=== PATIENT | female | born 1955 | race Two or more races ===

== ENCOUNTER 2025-08-20 05:48 | Observation (INO) | payer OTHER, MEDICAID, SELFPAY ==
[2025-08-20] VITALS (29 sets, daily range): BP systolic 122–169; BP diastolic 62–128; PULSE 63–168; RESP 15–24; TEMP 36.1–37.3; O2SAT 95–99; BMI 34.3
--- NOTE | 2025-08-20 05:52 | EKG_ITS ---
[facility], [place] Test Date: 2025-08-20 Pat Name: VIRGINIA SMITH Department: Room: - Gender: Female [employer]: : 1955 Requested By: Tarik Mc Order Number: [id number] Reading MD: Tarik Mc Measurements Intervals [place] Rate: 144 P: [place]: QRS: -5 QRSD: 86 T: 29 QT: 265 QTc: 410 Interpretive Statements ATRIAL FIBRILLATION WITH RAPID VENTRICULAR RESPONSE MODERATE ST DEPRESSION [0.05+ mV ST DEPRESSION] Compared to ECG 07/24/2024 12:46:15 ST (T wave) deviation now present Sinus rhythm no longer present /store/S0/[id number].pdf
--- NOTE | 2025-08-20 05:56 | XR_ITS ---
EXAMINATION: AP chest single view TECHNIQUE: AP portable upright chest single view Date and time: August 20, 2025, 0607 hours, comparison July 24, 2024 INDICATIONS: Chest pain today FINDINGS: Minor prominence left ventricle Moderate vascular congestion. Suspicious for mild edema at the lung bases No lobar pneumonia. Prominent osteopenia IMPRESSION: Suspicious for early heart failure
--- NOTE | 2025-08-20 05:56 | EKG_ITS ---
[facility] Test Date: 2025-08-20 Pat Name: VIRGINIA SMITH Department: Room: - Gender: Female [place]: : 1955 Requested By: Tarik Mc Order Number: [id number] Reading MD: Tarik Mc Measurements Intervals [place] Rate: 117 P: [place]: QRS: 11 QRSD: 102 T: 22 QT: 302 QTc: 422 Interpretive Statements ATRIAL FIBRILLATION WITH RAPID VENTRICULAR RESPONSE ABNORMAL RHYTHM ECG Compared to ECG 08/20/2025 05:54:40 ST (T wave) deviation no longer present /store/S0/[id number].pdf
[2025-08-20] MEDS: DILTIAZEM INJ 5 MG/ML VIAL 5 ML 10 MG IV ×2 (06:11→07:57)
--- NOTE | 2025-08-20 06:24 | PD.EDARRY ---
ED Arrhythmia Palp. RME/HPI General Chief Complaint: Anxiety Stated Complaint: ANXIETY Time Seen by Provider: 08/20/25 05:55 Source: patient and EMS Arrival date/time: 08/20/25 05:48 Mode of arrival: ambulatory Limitations: no limitations RME / HPI RME / HPI narrative: 70 year old female with history of hypertension, ESRD on HD T//Tue presents to the ED BIBA from the dialysis center for evaluation of elevated heart rate prior to receiving dialysis treatment today. Per medics, staff at the dialysis center reported a HR in the 160s. Medics state they administered 6mg of Adenosine with no change, followed by 12mg and an additional 12mg of Adenosine with no change. On arrival to ED HR in the 150s. No other associated symptoms reported. Healthcare Administrative Assistant: Dr. Jimmy STROUD complaint: irregular heart beat Onset (ago): unknown Duration: constant Context: occurred during rest Associated symptoms: denies other symptoms Related Data Home Medications ?Medication ?Instructions ?Recorded ?Confirmed nifedipine 30 mg tablet,extended 30 mg PO BID #0 tabs 08/17/17 08/06/23 release 24 hr (Procardia XL) hydralazine 25 mg tablet 50 mg PO TID 04/24/23 08/06/23 metoprolol tartrate 25 mg tablet 10 mg PO BID 04/24/23 08/06/23 losartan 100 mg tablet 100 mg PO QDAY 08/06/23 08/11/23 tramadol 50 mg tablet 50 mg PO Q8H PRN Pain 08/06/23 08/11/23 metoprolol tartrate 100 mg tablet 100 mg PO BID 08/11/23 08/11/23 nifedipine 30 mg tablet,extended 30 mg PO QDAY 08/11/23 08/11/23 release ondansetron 4 mg disintegrating 4 mg PO Q8H 08/11/23 08/11/23 tablet vitamin B complex-vitamin C-folic 1 tab PO QDAY 08/11/23 08/11/23 acid 0.8 mg tablet (Ingrid-Laron) Previous Rx's ?Medication ?Instructions ?Recorded amoxicillin 500 mg capsule 500 mg PO BID #10 caps 08/08/23 clonidine HCl 0.3 mg tablet 0.3 mg PO TID #90 tabs 08/08/23 Allergies Allergy/AdvReac Type Severity Reaction Status Date / Time No Known Allergies Allergy Verified 08/20/25 06:12 Review of Systems Review of Systems Systems Reviewed: All systems reviewed, normal except as documented Respiratory Respiratory: Reports system reviewed and no additional complaints, except as documented Gastrointestinal Gastrointestinal: Reports system reviewed and no additional complaints, except as documented Genitourinary Genitourinary: Reports system reviewed and no additional complaints, except as documented Musculoskeletal Musculoskeletal: Reports system reviewed and no additional complaints, except as documented Neurologic Neurologic: Reports system reviewed and no additional complaints, except as documented Psychiatric Psychiatric: Reports system reviewed and no additional complaints, except as documented Endocrine Endocrine: Reports system reviewed and no additional complaints, except as documented Past Medical History Past Medical History CARDIAC: Positive Cardiac Disorders and Hypertension GENITOURINARY: Positive Dialysis REPRODUCTIVE: Positive Previous Pregnancies ENDOCRINE: Positive Endocrine Disorders OTHER HISTORY: Positive Hospitalization Surgical History SURGICAL: Positive Endocrine Surgery Social History SMOKING STATUS: Never smoker SUBSTANCE USE: does not use 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 Exam General Limitations: Present no limitations General appearance: Present alert and in no apparent distress Head Head exam: Present atraumatic Eye Eye exam: Present normal appearance, PERRL and EOMI ENT ENT exam: Present normal exam, normal oropharynx and mucous membranes moist Neck Neck exam: Present normal inspection, full ROM and trachea midline Chest Chest inspection: Present normal inspection and symmetric chest wall rise Respiratory Respiratory exam: Present normal lung sounds bilaterally Cardiovascular Cardiovascular exam: Present tachycardia and irregular rhythm Abdominal Exam Abdominal exam: Present soft and normal bowel sounds Extremities Exam Extremities exam: Present normal inspection and full ROM Back Exam Back exam: Present normal inspection and full ROM Neurological Exam Neurological exam: Present alert, oriented X3 and CN II-XII intact Psychiatric Psychiatric exam: Present normal affect and normal mood Skin Skin exam: Present warm, dry, intact and normal color Course Quality Measures none Orders Category Date Time Status EKG (ED ONLY) *Do not use* NOW Care 08/20/25 05:52 Completed EKG (ED ONLY) *Do not use* NOW Care 08/20/25 05:56 Completed EKG (ED Only) Stat Exams 08/20/25 05:52 Draft EKG (ED Only) Stat Exams 08/20/25 05:56 Ordered XR chest 1V portable Stat Exams 08/20/25 05:56 Taken B-Type Natriuretic Peptide Stat Lab 08/20/25 05:56 Ordered CBC Stat Lab 08/20/25 05:56 Ordered Comprehensive Metabolic Panel Stat Lab 08/20/25 05:56 Ordered Drug Screen,Urine Stat Lab 08/20/25 05:56 Ordered LDH (Lactate Dehydrogenase) Stat Lab 08/20/25 05:56 Ordered Magnesium Stat Lab 08/20/25 05:56 Ordered Partial Thromboplastin Time Stat Lab 08/20/25 05:56 Ordered Prothrombin Time with INR Stat Lab 08/20/25 05:56 Ordered Troponin I Stat Lab 08/20/25 05:56 Ordered Urinalysis, C/S if Indicated Stat Lab 08/20/25 05:56 Ordered Diltiazem Inj [Cardizem Inj] Med 08/20/25 05:57 Discontinued 10 mg IV X1 ONE Vital Signs Vital signs: Vital Signs Temperature 99.1 F 08/20/25 05:54 Pulse Rate 150 H 08/20/25 05:54 Respiratory Rate 18 08/20/25 05:54 Blood Pressure 162/128 H 08/20/25 05:54 Pulse Oximetry (%) 97 08/20/25 05:54 Oxygen Delivery Method Room Air 08/20/25 05:54 Arrhythmia/Palpitations MDM Narrative MDM Narrative:: Patient placed immediately to room placed on consulting psychiatrist. 0644a: EKG noted to be atrial fibrillation. Patient without chest pain, shortness of breath. 1000a: I spoke with nephrology Dr. Marquez, states she will get the patient dialyzed and advised admission. 1005a: I spoke with hospitalist team C for admission. Patient data External records reviewed:: [facility] previous records (Patient on hemodialysis) Clinical information provided by:: patient and family Social determinants that could affect healthcare access:: none Patient has the following chronic illnesses:: Hypertension, hemodialysis, end-stage renal disease How is presenting disease/condition affected by chronic disease/condition?: exacerbated by Evaluation data The following diagnostics were reviewed and interpreted by me:: lab results, radiology exam(s) and EKG tracing(s) (EKG #1 @ 05:54 AM atrial fibrillation with RVR, rate 144, no STEMI. EKG #2 @ 10:12 AM atrial fibrillation with RVR, rate 117, no STEMI. ) Lab and/or radiology exams considered but not ordered:: None Interpretation Summary: Ordering Physician: Tarik Lynn DO Date of Service: 08/20/25 Procedure(s): XR chest 1V portable Accession Number(s): [id number] cc: Luis Adrian; Tarik Lynn DO; Matthias Cabrera MD~ EXAMINATION: AP chest single view TECHNIQUE: AP portable upright chest single view Date and time: August 20, 2025, 0607 hours, comparison July 24, 2024 INDICATIONS: Chest pain today FINDINGS: Minor prominence left ventricle Moderate vascular congestion. Suspicious for mild edema at the lung bases No lobar pneumonia. Prominent osteopenia IMPRESSION: Suspicious for early heart failure Dictated By: Matthias Cabrera MD Signed By: <Electronically signed by Matthias Cabrera MD in OV> 08/20/25 0738 Medications / Prescriptions Medications or Prescriptions considered but not ordered:: None Medication administrations:: Medication Administration History Discontinued Medications Diltiazem HCl (Diltiazem Inj 5 Mg/Ml Vial 5 Ml) 10 mg IV X1 ONE Stop: 08/20/25 05:58 Last Admin: 08/20/25 06:11 Dose: 10 mg Documented By: AC Consultations Consultation(s) initiated? (list below): Yes Consultation #1 (Physician, Specialty, Details): See mdm Diagnosis Most likely diagnosis given after review of the tests above:: New onset atrial fibrillation Admission Indicated Admission indicated?: indicated Admission Request Was there a request for admission?: Yes Admission Attestation Admission request attestation: Discussed case with [] from Hospitalist service regarding admission. Discussed patients ED course, exam findings, labs, and radiology results. The Hospitalist [agrees,declines] to accept the patient for admission. Disposition Plan Disposition Plan: Admit Discharge Plan Plan Patient Disposition: Admit Acute Care w/in Hospital Problem List Clinical Impression: Atrial fibrillation, new onset
[2025-08-20 06:32] LABS: Basophils # (Auto) 0.0 Thou/mm3 (0.0-0.2); Basophils % (Auto) 1 % (0-2.5); Eosinophils # (Auto) 0.4 Thou/mm3 (0.0-0.5); Eosinophils % (Auto) 4 % (0-10); Hematocrit 41.1 % (36.0-46.0); Hemoglobin 13.9 g/dL (12.0-16.0); Immature Granulocytes Auto 0.03 Thou/mm3 (0.00-0.00); Lymphocytes # (Auto) 2.5 Thou/mm3 (1.0-4.8); Lymphocytes % (Auto) 30 % (10-50); Mean Corpuscular HGB Conc 33.8 g/dl (31.0-37.0); Mean Corpuscular Hemoglobin 34.9 pg (25.0-35.0); Mean Corpuscular Volume 103 fL (80-100); Monocytes # (Auto) 0.8 Thou/mm3 (0.0-0.8); Monocytes % (Auto) 9 % (0-12); Neutrophils # (Auto) 4.8 Thou/mm3 (1.8-7.7); Neutrophils % (Auto) 56 % (37-80); Nucleated Red Blood Cell # 0.00 Thou/mm3 (0.00-0.00); Nucleated Red Blood Cell % 0 /100 WBC (0); Platelet Count 146 Thou/mm3 (140-440); RDW Standard Deviation 50.3 fL (36.4-46.3); Red Blood Count 3.98 Miln/mm3 (4.00-5.20); White Blood Count 8.6 Thou/mm3 (3.6-11.0)
[2025-08-20 06:51] LABS: INR 1.0 (0.9-1.3); Partial Thromboplastin Time 24.8 Seconds (22.0-36.0); Prothrombin Time 10.3 Seconds (9.0-12.2)
[2025-08-20 07:05] LABS: B-Type Natriuretic Peptide 744 pg/mL (0-100)
[2025-08-20 07:07] LABS: Alanine Aminotransferase 29 U/L (10-49); Albumin, Serum 4.4 gm/dL (3.4-4.8); Albumin/Globulin Ratio 1.7 (1.2-2.2); Alkaline Phosphatase 129 U/L (46-116); Anion Gap 19 (7-16); Aspartate Amino Transferase 29 U/L (0-34); BUN/Creatinine Ratio 4 Ratio (12-20); Bilirubin,Total 0.4 mg/dL (0.3-1.2); Blood Urea Nitrogen 49 mg/dL (9-23); Calcium 9.4 mg/dL (8.3-10.6); Calcium (Corrected) 9.4 mg/dL (8.5-10.1); Carbon Dioxide 17.7 mMol/L (20.0-31.0); Chloride 103 mMol/L (98-107); Creatinine (Component) 11.0 mg/dL (0.6-1.3); Estimated Creatinine Clearance 4.5 mL/min (>60); Globulin 2.6 gm/dL (2.3-3.5); Glucose 109 mg/dL (74-106); Magnesium 2.4 mg/dL (1.6-2.6); Osmolality,Calculated 293 (275-295); Potassium 4.5 mMol/L (3.4-5.1); Sodium 140 mMol/L (136-145); Total Protein 7.0 gm/dL (5.7-8.2); Troponin I < 0.020 ng/mL (0.0-0.045); eGFR 3 See Note
[2025-08-20 07:18] LABS: LDH (Lactate Dehydrogenase) 219 U/L (120-246)
--- NOTE | 2025-08-20 11:10 | PD.RESHP ---
Documentation for date of: 08/20/25 [facility] History of Present Illness Chief complaint: palpitations History of present illness: 70-year-old female with past medical history ESRD, hypertension, and hyperlipidemia was admitted to the hospital on 08/20/2025 after she came to the ED with chief complaints of palpitations and shortness of breath while getting hemodialysis today. Patient stated that she was getting ready to get her hemodialysis today when they told her that her heart rate was too fast and did not do hemodialysis and was sent to the ED. She mentioned that she had never felt any palpitations or this type of shortness of breath before, but that today she felt that around 4 AM before dialysis. Otherwise she denied having any chest pain, nausea, vomiting, or numbness in her left arm or face. She mentions that she does not have any cardiac history. Otherwise no other complaints at this time. ED course: Initially came in tachycardic and hypertensive. Initial chest x-ray showed suspicion for early heart failure and initial EKG showed A-fib with RVR and a rate of 144. Initial labs were fairly unremarkable other than CMP showing elevated creatinine and elevated BNP. Got 2 doses of 10 mg diltiazem IV with minimal improvement in patient's heart rate. 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 Anicteric, vision grossly intact. Ears: No ear pain, no ear discharge, Hearing grossly intact. Nose: No nasal discharge. Mouth/Throat: Moist mucous membranes, no redness, no lesions. Neck: Neck supple, non-tender, no cervical lymphadenopathy. Lungs: Clear NINO to auscultation and percussion, No accessory muscle use. Cardio: Normal S1/S2, irregular rhythm, no murmurs, no JVD or carotid bruits. Abdomen: Soft, non-tender, no palpable masses, peristalsis present, no guarding or rebound. Extremities: Symmetrical, no significant deformities, no peripheral edema , non-tender, peripheral pulses presents. Skin: No rashes, no lesions, warm to touch. L arm fistula Neuro: No focal neurological deficits. motor and sensory intact Psych: Cooperative, appropriate mood and effect. Results: Labs 08/20/25 06:22 08/20/25 13:27 Labs: Short CBC 08/20/25 Range/Units 06:22 WBC 8.6 (3.6-11.0) Thou/mm3 Hgb 13.9 (12.0-16.0) g/dL Hct 41.1 (36.0-46.0) % Plt Count 146 (140-440) Thou/mm3 BMP 08/20/25 06:22 Sodium 140 Potassium 4.5 Chloride 103 Carbon Dioxide 17.7 L BUN 49 H Creatinine 11.0 H* Glucose 109 H Calcium 9.4 Cardiac Enzymes 08/20/25 Range/Units 06:22 Troponin I < 0.020 (0.0-0.045) ng/mL Liver Function 08/20/25 Range/Units 06:22 Total Bilirubin 0.4 (0.3-1.2) mg/dL AST 29 (0-34) U/L ALT 29 (10-49) U/L Alkaline Phosphatase 129 H (46-116) U/L Albumin 4.4 (3.4-4.8) gm/dL Quality Measures Quality Measures VTE prophylaxis Advance care planning discussed with:: patient Medications Home Medications and Allergies Home Medications ?Medication ?Instructions ?Recorded ?Confirmed ?Type nifedipine 30 mg tablet,extended 30 mg PO BID #0 tabs 08/17/17 08/06/23 History release 24 hr (Procardia XL) hydralazine 25 mg tablet 50 mg PO TID 04/24/23 08/06/23 History metoprolol tartrate 25 mg tablet 10 mg PO BID 04/24/23 08/06/23 History losartan 100 mg tablet 100 mg PO QDAY 08/06/23 08/11/23 History tramadol 50 mg tablet 50 mg PO Q8H PRN Pain 08/06/23 08/11/23 History metoprolol tartrate 100 mg tablet 100 mg PO BID 08/11/23 08/11/23 History nifedipine 30 mg tablet,extended 30 mg PO QDAY 08/11/23 08/11/23 History release ondansetron 4 mg disintegrating 4 mg PO Q8H 08/11/23 08/11/23 History tablet vitamin B complex-vitamin C-folic 1 tab PO QDAY 08/11/23 08/11/23 History acid 0.8 mg tablet (Ingrid-Laron) Allergies Allergy/AdvReac Type Severity Reaction Status Date / Time No Known Allergies Allergy Verified 08/20/25 06:12 Visit Medications Acetaminophen (Acetaminophen 325 Mg Tablet) 650 mg PO Q6H PRN PRN Reason: Fever >100.4 Stop: 09/19/25 11:01 Hydrocodone Bitart/Acetaminophen (Hydrocodone/Apap 5/325 Tablet) 1 tab PO Q4HR PRN PRN Reason: PAIN SCALE 4-6 (Moderate Stop: 08/25/25 11:01 Metoprolol Succinate (Metoprolol Succinate Xl 25 Mg Tabcr) 50 mg PO QDAY [facility] Stop: 09/19/25 11:14 Ondansetron HCl (Ondansetron Inj 2 Mg/Ml Inj 2 Ml) 4 mg IVP Q6H PRN; Protocol PRN Reason: NAUSEA OR VOMITING Stop: 09/19/25 11:01 Pantoprazole Sodium (Pantoprazole 40 Mg Tablet) 40 mg PO QDAY [facility] Stop: 09/19/25 11:14 Discontinued Medications Diltiazem HCl (Diltiazem Inj 5 Mg/Ml Vial 5 Ml) 10 mg IV X1 ONE Stop: 08/20/25 05:58 Last Admin: 08/20/25 06:11 Dose: 10 mg Diltiazem HCl (Diltiazem Inj 5 Mg/Ml Vial 5 Ml) 5 mg IV X1 ONE Stop: 08/20/25 06:52 Diltiazem HCl (Diltiazem Inj 5 Mg/Ml Vial 5 Ml) 10 mg IV X1 ONE Stop: 08/20/25 06:53 Last Admin: 08/20/25 07:57 Dose: 10 mg Assessment & Plan Plan 70-year-old female with past medical history ESRD, hypertension, and hyperlipidemia was admitted to the hospital on 08/20/2025 for A-fib with RVR. #A-fib with RVR Patient came in initially with low heart rate in the 150s and EKG initially showed A-fib RVR with a heart rate of 144. Got diltiazem 10 mg IV x 2 with minimal improvement [id number] score of 3 points indicating 4.6% risk of stroke Has-bled score of 2 points indicating moderate risk of bleeding. BNP elevated Plan: Start metoprolol succinate XL 50 mg daily Heparin drip for anticoagulation and will transition to Eliquis in the next 24 to 48 hours if no bleeding. Echo ordered keep potassium magnesium above 4 and 2 respectively. TSH, lipid panel, and A1c for cardiac risk stratification Cardiology consulted, appreciate commendations #ESRD Patient has hemodialysis scheduled for today, but did not get it today Patient's creatinine was 9.1 with BUN of 52 today Plan: Continue with hemodialysis as scheduled Avoid nephrotoxic agents Renally dose medication Nephrology consulted appreciate commendations # Essential hypertension Resume home antihypertensive treatment once reconciled. Monitor BP Disposition: Patient admitted to telemetry for A-fib with RVR. Diet: cardiac and renal GI prophylaxis: protonix DVT prophylaxis: heparin drip Code: Full Case disclosed with Attending Dr. Joey Hall PGY2 Disclaimer: Even though this this note was dictated by speech recognition and even though it was carefully revised there may still be minor errors in facility examiner due to voice recognition software. Attending Provider Attestation/Addendum I reviewed labs, imaging, EKG, home medications and prior available records. Face to face evaluation was performed by me. I have personally examined the patient and discussed assessment and plan with the IM team. I reviewed the resident note and agree with the plan with exceptions as below. ESRD on hemodialysis Atrial fibrillation with RVR, new onset Essential hypertension Gave IV diltiazem Started oral metoprolol Started heparin drip Ordered echocardiogram Consulted cardiology Consulted nephrology for hemodialysis Resume home antihypertensive treatment once reconciled. Monitor BP
--- NOTE | 2025-08-20 11:32 | ECHO_ITS ---
Transthoracic Echo Report Ht (in): 60 Wt (lb): 176 Exam Location: [facility] Status: Inpatient Director Of Sustainability Programs: Rocio Chavez Indications: Procedure Performed: BP: 162 / 98 HR: 76 MEASUREMENTS (Male / Female) Normal Values 2D ECHO LV Diastolic Diameter PLAX 4.3 cm 4.2 - 5.9 / 3.9 - 5.3 cm LV Systolic Diameter PLAX 2.8 cm IVS Diastolic Thickness 1.1 cm 0.6 - 1.0 / 0.6 - 0.9 cm LVPW Diastolic Thickness 1.2 cm 0.6 - 1.0 / 0.6 - 0.9 cm LV Relative Wall Thickness 0.5 LVOT Diameter 1.9 cm LA Volume Index 41.5 cm?/m? 16 - 28 cm?/m? Ascending Aorta Diameter 2.6 cm M-MODE AV Cusp Separation MM 1.1 cm DOPPLER AV Peak Velocity 137.0 cm/s AV Peak Gradient 7.5 mmHg AV Mean Gradient 4.0 mmHg AV Velocity Time Integral 33.3 cm LVOT Peak Velocity 102.0 cm/s LVOT Peak Gradient 4.2 mmHg LVOT Velocity Time Integral 24.2 cm LVOT Cardiac Index 2779.2 cm?/min?m? AV Area Cont Eq vti 2.1 cm? AV Area Cont Eq pk 2.1 cm? MV Area PHT 4.2 cm? Mitral E Point Velocity 59.7 cm/s Mitral A Point Velocity 79.1 cm/s Mitral E to A Ratio 0.8 LV E' Lateral Velocity 10.3 cm/s Mitral E to LV E' Lateral Ratio 5.8 LV E' Septal Velocity 5.7 cm/s Mitral E to LV E' Septal Ratio 10.5 TR Peak Velocity 237.0 cm/s TR Peak Gradient 22.5 mmHg PV Peak Velocity 102.0 cm/s PV Peak Gradient 4.2 mmHg FINDINGS Left Ventricle Normal left ventricular size, wall thickness, systolic function with no obvious regional wall motion abnormalities. There is grade I diastolic dysfunction of the left ventricle (impaired relaxation pattern). . The ejection fraction is visually estimated at 60-65%. Right Ventricle The right ventricle is normal in size and systolic function. The estimated right ventricular systolic pressure, 34 mmHg with RAP 10. Mild HTN. Left Atrium The left atrial cavity size is severely increased. Right Atrium The right atrial cavity size is mildly increased. Atrial Septum The interatrial septum appears normal with no evidence of a shunt. Aorta The aorta is normal by two-dimensional, color flow and Doppler interrogation. Mitral Valve The mitral valve is normal by two-dimensional, color flow and Doppler interrogation. Mild mitral regurgitation. Aortic Valve The aortic valve is trileaflet and normal by two-dimensional, color flow and Doppler interrogation. There is no significant aortic valve regurgitation. Tricuspid Valve The tricuspid valve is normal by two-dimensional, color flow and Doppler interrogation. There is mild tricuspid valve regurgitation. Pulmonic Valve The pulmonic valve is not well visualized.mild pulmonic valve regurgitation. Vessels The pulmonary artery appears normal. The inferior vena cava pulmonary and hepatic veins appear normal. Pericardium The pericardium is normal by two-dimensional imaging. There is no significant pericardial effusion. CONCLUSIONS Indication: Afib w RVR, SOB Normal left ventricular size and function. Grade I diastolic dysfunction. Estimated EF 60-65%. Normal Right ventricular size and function. RVSP 34 mmHg with RAP 10. Mild HTN Moderately dilated LA and mild dilated RA Mild MR,TR,PI. No pericardial effusion. Compared to prior study of 08/08/23 Edwin Pacheco (Electronically Signed) Final Date: 21 August 2025 18:24
[2025-08-20] MEDS: PANTOPRAZOLE 40 MG TABLET PO (11:48)
[2025-08-20] MEDS: METOPROLOL SUCCINATE XL 25 MG TABCR 50 MG PO (11:48)
[2025-08-20 12:02] LABS: Partial Thromboplastin Time 25.9 Seconds (22.0-36.0)
--- NOTE | 2025-08-20 12:05 | PC.NURSE ---
Called and spoke with Dr Blas Solares to inform him that patient converted to sinus rhythm at 76bpm. Also informed Dr that dialysis is ready for patient and confirmed if he wanted heparin drip to be started at this time. Dr stated to start heparin at this time.
--- NOTE | 2025-08-20 12:11 | PD.RESCONSUL ---
HPI Data of Consult Requesting Physician: Bradley Cook MD Admitting Provider: Bradley Cook MD Attending Provider: Bradley Cook MD Primary Care Provider: Luis Adrian Consult Narrative History of present illness: Patient is a 70 year old female with PMH of end-stage renal disease on hemodialysis TTS followed by Dr. Finch since March 2023, essential hypertension (previously on multiple medications) was brought in for palpitations and shortness of breath upon arrival to the hemodialysis center. Did not start her session, has been adherent to her schedule, last session was on Tuesday. EKG that was done and was found to be in A-fib with RVR. Denies any prior episodes. BP 162/128, HR 150. Patient was afebrile, saturating well on room air. EKG showed A-fib with RVR, was given diltiazem x 2 followed by metoprolol XL 50 mg x 1. Upon exam, patient was back in sinus rhythm, heart rate 74. Cardiology consulted for afib with RVR. Past Medical History: as above Family History: No known history of cardiac disease, RI, or stroke. Surgical History: None Social History: Denies history of smoking, denies current alcohol use, denies recreational drug use Current Medications: reports she is not taking any but previously prescribed clonidine 0.3 mg 3 times daily, hydralazine 50 mg 3 times daily, losartan 100 mg daily, metoprolol tartrate 10 mg twice daily, nifedipine 30 mg daily Allergies: No known drug allergies cc:: cc: Bradley Cook MD Exam Vital Signs Temp Pulse Resp BP Pulse Ox O2 Del Method 98.6 F 122 H 16 162/98 H 98 Room Air 08/20/25 11:00 08/20/25 11:48 08/20/25 11:30 08/20/25 11:48 08/20/25 11:30 08/20/25 11:30 Narrative Exam Physical Exam General: Awake and in no acute distress. Conversational and non-toxic appearing. Pleasant [place]an-speaking elderly lady. HEENT: Normocephalic, atraumatic, mucous membranes moist. Heart: Regular rate and rhythm, normal S1 and S2, no murmurs appreciated. Lungs: Clear to auscultation with no wheezing or crackles. Abdomen: Soft, nondistended, nontender, positive bowel sounds. No guarding or rebound tenderness. Neurologic: Alert and oriented x3, no gross neurological deficit, and patient able to move all 4 extremities. Extremities: No edema. Skin: No rash or ecchymoses. Results Labs 08/21/25 05:01 08/21/25 05:01 Labs: Short CBC 08/20/25 Range/Units 06:22 WBC 8.6 (3.6-11.0) Thou/mm3 Hgb 13.9 (12.0-16.0) g/dL Hct 41.1 (36.0-46.0) % Plt Count 146 (140-440) Thou/mm3 BMP 08/20/25 06:22 Sodium 140 Potassium 4.5 Chloride 103 Carbon Dioxide 17.7 L BUN 49 H Creatinine 11.0 H* Glucose 109 H Calcium 9.4 Cardiac Enzymes 08/20/25 Range/Units 06:22 Troponin I < 0.020 (0.0-0.045) ng/mL Liver Function 08/20/25 Range/Units 06:22 Total Bilirubin 0.4 (0.3-1.2) mg/dL AST 29 (0-34) U/L ALT 29 (10-49) U/L Alkaline Phosphatase 129 H (46-116) U/L Albumin 4.4 (3.4-4.8) gm/dL Quality Measures Quality Measures VTE prophylaxis Advance care planning discussed with:: patient Medications Home Medications and Allergies Home Medications ?Medication ?Instructions ?Recorded ?Confirmed ?Type nifedipine 30 mg tablet,extended 30 mg PO BID #0 tabs 08/17/17 08/20/25 History release 24 hr (Procardia XL) hydralazine 25 mg tablet 50 mg PO TID 04/24/23 08/20/25 History metoprolol tartrate 25 mg tablet 10 mg PO BID 04/24/23 08/20/25 History losartan 100 mg tablet 100 mg PO QDAY 08/06/23 08/20/25 History metoprolol tartrate 100 mg tablet 100 mg PO BID 08/11/23 08/20/25 History nifedipine 30 mg tablet,extended 30 mg PO QDAY 08/11/23 08/20/25 History release Allergies Allergy/AdvReac Type Severity Reaction Status Date / Time No Known Allergies Allergy Verified 08/20/25 06:12 Visit Medications Acetaminophen (Acetaminophen 325 Mg Tablet) 650 mg PO Q6H PRN PRN Reason: Fever >100.4 Stop: 09/19/25 11:01 Hydrocodone Bitart/Acetaminophen (Hydrocodone/Apap 5/325 Tablet) 1 tab PO Q4HR PRN PRN Reason: PAIN SCALE 4-6 (Moderate Stop: 08/25/25 11:01 Heparin Sodium/Dextrose (Heparin In D5w Ivpb) 25,000 unit in 250 mls @ 9.58 mls/hr IV .Q24H ISIDORO; Protocol Stop: 09/03/25 11:59 Metoprolol Succinate (Metoprolol Succinate Xl 25 Mg Tabcr) 50 mg PO QDAY ISIDORO Stop: 09/19/25 11:14 Last Admin: 08/20/25 11:48 Dose: 50 mg Ondansetron HCl (Ondansetron Inj 2 Mg/Ml Inj 2 Ml) 4 mg IVP Q6H PRN; Protocol PRN Reason: NAUSEA OR VOMITING Stop: 09/19/25 11:01 Pantoprazole Sodium (Pantoprazole 40 Mg Tablet) 40 mg PO QDAY [facility] Stop: 09/19/25 11:14 Last Admin: 08/20/25 11:48 Dose: 40 mg Discontinued Medications Diltiazem HCl (Diltiazem Inj 5 Mg/Ml Vial 5 Ml) 10 mg IV X1 ONE Stop: 08/20/25 05:58 Last Admin: 08/20/25 06:11 Dose: 10 mg Diltiazem HCl (Diltiazem Inj 5 Mg/Ml Vial 5 Ml) 5 mg IV X1 ONE Stop: 08/20/25 06:52 Diltiazem HCl (Diltiazem Inj 5 Mg/Ml Vial 5 Ml) 10 mg IV X1 ONE Stop: 08/20/25 06:53 Last Admin: 08/20/25 07:57 Dose: 10 mg Heparin Sodium (Porcine) (Heparin Sod Inj 5000 Unit/Ml Vial) 4,800 unit 80 unit/kg (6400 unit) IV X1 ONE; Protocol Stop: 08/20/25 11:46 Assessment & Plan Plan Patient is a 70 year old female with PMH of end-stage renal disease on hemodialysis TTS followed by Dr. Finch since March 2023, essential hypertension (previously on multiple medications) was brought in for palpitations and shortness of breath. Admitted for A-fib with RVR. #New onset paroxysmal atrial fibrillation with RVR Presented with palpitations and shortness of breath, found to be in A-fib RVR on EKG. As per the patient she never had a history of A-fib. Reason for the RVR is mostly fluid overload as well as electrolyte abnormalities. No significant evidence of infection at the present point of time. Reviewed the previous EKG and previous was normal sinus rhythm. Patient did convert to normal sinus rhythm after the diltiazem x2 and metoprolol 50 x1, continues to stay normal sinus rhythm. Echocardiogram 10/2023 showed normal LV size and function with an EF of 60 to 65% with an estimated RVSP of 55 mmHg. Normal RV size and function. At least moderate pulmonary hypertension. Moderately dilated LA and severely dilated RA with mild to moderate MR as well as PI. Severe TR and IVC was dilated at that point of time. [id number] score is 4 Has bled score is 3. - Recommend to start metoprolol XL 50 mg once daily and continue to uptitrate it based on the blood pressure. - Recommend anticoagulation for the patient and can start with heparin drip for now until any further procedures are planned. Can transition to oral Eliquis 5 mg twice daily at the time of discharge or when no further procedures planned. - Keep potassium for greater than 4 and magnesium greater than 2.0 at all times. - Recommend to continue to treat the cause for the A-fib with RVR. - Continue telemetry. - Echocardiogram ordered to evaluate LV function RV function as well as diastolic function and to rule out any kind of pericardial effusion. Previous echo reviewed. - TSH, lipid panel, and A1c for cardiac risk stratification # History of diastolic congestive heart failure along with moderate to severe pulmonary hypertension. # Valvular heart disease with severe TR during last echocardiogram in 2022 along with mild to moderate MR as well as PI. # End-stage renal disease on hemodialysis TTSat Regarding her diastolic congestive heart failure, patient does have a history of end-stage renal disease on hemodialysis which may be major contributory factor. Patient does appear to be fluid overloaded with some electrolyte abnormalities as noted above which cause with RVR. Regarding her valvular heart disease last echo did show severe TR along with mild to moderate MR as well as PI. Patient is on dialysis and makes little urine. Follows Dr. Marquez as above. S/p inpatient dialysis 08/20. - Recommend to continue daily dialysis for now and have euvolemic status - Further management as per nephrology. - Will await for the repeat echocardiogram as noted above to evaluate for the CHF as well as the valvular heart disease #Hypertension Presented with BP of 162/128. Previously taking 5 different blood pressure medications however has not been taking them as of late because she was told that her blood pressure is fine. ?Monitor blood pressure -Restart home BP meds if blood pressure continues to be uncontrolled depending on HR, renal function, and echo results Thank you for your consultation, please do not hesitate to reach out if you have any question or concern Patient plan of care was discussed with the attending physician, Dr. Pacheco . Deborah Red, PGY-1 Attending Provider Attestation/Addendum I have personally seen and examined the patient separately on the above date of service and discussed the plan of care with the resident. I reviewed the resident Dr. Deborah Red consultation progress note and agree with the resident findings and plan in the note above and have also edited the documentation to reflect my findings and plan. Edwin Pacheco M.D. Interventional Cardiology
[2025-08-20] MEDS: HEPARIN SOD INJ 5000 UNIT/ML VIAL 4800 UNIT IV (12:13)
[2025-08-20] MEDS: Heparin/D5w 25K 250 ML Ivpb 25,000 UNIT/250 ML BAG 9.58 UNIT IV (12:16)
--- NOTE | 2025-08-20 12:17 | PC.NURSE ---
[employer] Operator Tara at bedside
[2025-08-20 14:17] LABS: Albumin, Serum 4.0 gm/dL (3.4-4.8); Anion Gap 17 (7-16); BUN/Creatinine Ratio 6 Ratio (12-20); Blood Urea Nitrogen 52 mg/dL (9-23); Calcium 9.0 mg/dL (8.3-10.6); Calcium (Corrected) 9.0 mg/dL (8.5-10.1); Carbon Dioxide 21.4 mMol/L (20.0-31.0); Chloride 102 mMol/L (98-107); Creatinine (Component) 9.1 mg/dL (0.6-1.3); Estimated Creatinine Clearance 5.5 mL/min (>60); Glucose 120 mg/dL (74-106); Osmolality,Calculated 294 (275-295); Phosphorous 2.8 mg/dL (2.4-5.1); Potassium 4.8 mMol/L (3.4-5.1); Sodium 140 mMol/L (136-145); eGFR 4 See Note
[2025-08-20 15:02] LABS: Hepatitis A Antibody IgM Non Reactive (Non React); Hepatitis B Core Antibody IgM Non Reactive (Non React); Hepatitis B Surface Ab NonReact(Not Immune) (Immune); Hepatitis B Surface Antigen Non Reactive (Non React); Hepatitis C Antibody Reactive (Non React)
[2025-08-20 17:42] LABS: Partial Thromboplastin Time 75.3 Seconds (22.0-36.0)
[2025-08-20] MEDS: NIFEdipine XL 30 MG TABCR PO (17:50)
[2025-08-20 19:34] LABS: Partial Thromboplastin Time 67.9 Seconds (22.0-36.0)
[2025-08-20] MEDS: ACETAMINOPHEN 325 MG TABLET 650 MG PO (19:57)
[2025-08-21] VITALS (25 sets, daily range): BP systolic 102–196; BP diastolic 56–93; PULSE 50–95; RESP 14–98; TEMP 35.9–36.8; O2SAT 95–98; BMI 33.1
[2025-08-21 02:18] LABS: Partial Thromboplastin Time 65.6 Seconds (22.0-36.0)
[2025-08-21 06:18] LABS: Basophils # (Auto) 0.1 Thou/mm3 (0.0-0.2); Basophils % (Auto) 1 % (0-2.5); Eosinophils # (Auto) 0.4 Thou/mm3 (0.0-0.5); Eosinophils % (Auto) 5 % (0-10); Hematocrit 43.2 % (36.0-46.0); Hemoglobin 14.9 g/dL (12.0-16.0); Immature Granulocytes Auto 0.07 Thou/mm3 (0.00-0.00); Lymphocytes # (Auto) 3.0 Thou/mm3 (1.0-4.8); Lymphocytes % (Auto) 33 % (10-50); Mean Corpuscular HGB Conc 34.5 g/dl (31.0-37.0); Mean Corpuscular Hemoglobin 35.5 pg (25.0-35.0); Mean Corpuscular Volume 103 fL (80-100); Monocytes # (Auto) 0.9 Thou/mm3 (0.0-0.8); Monocytes % (Auto) 10 % (0-12); Neutrophils # (Auto) 4.5 Thou/mm3 (1.8-7.7); Neutrophils % (Auto) 50 % (37-80); Nucleated Red Blood Cell # 0.00 Thou/mm3 (0.00-0.00); Nucleated Red Blood Cell % 0 /100 WBC (0); Platelet Count 170 Thou/mm3 (140-440); RDW Standard Deviation 50.9 fL (36.4-46.3); Red Blood Count 4.20 Miln/mm3 (4.00-5.20); White Blood Count 8.9 Thou/mm3 (3.6-11.0)
[2025-08-21 06:41] LABS: Alanine Aminotransferase 23 U/L (10-49); Albumin, Serum 4.1 gm/dL (3.4-4.8); Albumin/Globulin Ratio 1.6 (1.2-2.2); Alkaline Phosphatase 103 U/L (46-116); Anion Gap 17 (7-16); Aspartate Amino Transferase 33 U/L (0-34); BUN/Creatinine Ratio 4 Ratio (12-20); Bilirubin,Total 0.5 mg/dL (0.3-1.2); Blood Urea Nitrogen 28 mg/dL (9-23); Calcium 8.9 mg/dL (8.3-10.6); Calcium (Corrected) 8.9 mg/dL (8.5-10.1); Carbon Dioxide 24.6 mMol/L (20.0-31.0); Cardiac Risk Estimate 2.5 RATIO (3.7-5.6); Chloride 98 mMol/L (98-107); Cholesterol 133 mg/dL (132-200); Creatinine (Component) 7.1 mg/dL (0.6-1.3); Estimated Creatinine Clearance 6.9 mL/min (>60); Globulin 2.6 gm/dL (2.3-3.5); Glucose 83 mg/dL (74-106); HDL Cholesterol 54 mg/dL (40-60); LDL Cholesterol,Calculated 65 mg/dL (0-130); Magnesium 2.2 mg/dL (1.6-2.6); Osmolality,Calculated 283 (275-295); Phosphorous 5.4 mg/dL (2.4-5.1); Potassium 4.4 mMol/L (3.4-5.1); Sodium 140 mMol/L (136-145); Thyroid Stimulating Hormone 1.56 uIU/mL (0.55-4.78); Total Protein 6.7 gm/dL (5.7-8.2); Triglycerides 70 mg/dL (30-150); eGFR 6 See Note
--- NOTE | 2025-08-21 07:35 | ESCONSULT_ITS ---
RE: VIRGINIA SMITH : 1955 DATE OF CONSULTATION: 08/20/2025 REASON FOR REFERRAL: ESRD management. REFERRING PHYSICIAN: Hospitalist HISTORY OF PRESENT ILLNESS: This patient is a 70-year-old Citizen Of [place]- speaking only woman with past medical history significant for hypertension and membranous nephropathy, who ended up on dialysis, who dialyzes Tuesdays, and Saturdays since 01/10/2023, who was sent to emergency room early this morning when she presented to dialysis unit with heart rate of 148-150s. This is the first time that she experienced having this kind of heart rate. When she presented to emergency room with tachycardia, she was found with rapid atrial fibrillation. While in ER, she was given diltiazem twice and also metoprolol IV. Heart rate settled down and went below 100. She missed her dialysis today and as such, she is currently on dialysis and tolerating it somehow. The patient also has a history of volume overload in the past and usually comes to the dialysis unit with volume overload. The patient also has on and off uncontrolled hypertension. PAST MEDICAL HISTORY: As previously mentioned, uncontrolled hypertension, ESRD, and history of membranous nephropathy. ALLERGIES: NO KNOWN DRUG ALLERGIES. CURRENT MEDICATIONS: 1. Acetaminophen. 2. Heparin drip. 3. Hydrocodone. 4. Metoprolol 50 mg p.o. daily. 5. Nifedipine 30 mg p.o. daily. 6. Ondansetron 4 mg IV q.6. 7. Protonix 40 mg p.o. daily. PHYSICAL EXAMINATION: GENERAL: She is awake, alert, and oriented. She is currently on dialysis. VITAL SIGNS: Blood pressure of 137/77, heart rate of 68, and temperature 97.3. HEENT: Anicteric sclerae. Normocephalic. NECK: Supple. No JVD. CHEST AND LUNGS: Symmetric expansion. Clear breath sounds. CARDIAC: Without murmur. ABDOMEN: Soft and nontender. EXTREMITIES: No edema. LABORATORY DATA: Hemoglobin 13.9, WBC 8600, and platelet count 146,000. Sodium 140, potassium 4.8, chloride 102, CO2 of 21.4, BUN 52, creatinine 9.1, glucose 120, and calcium 9.4. ASSESSMENT: 1. End-stage renal disease. 2. History of hypertension. 3. History of volume overload. 4. Paroxysmal atrial fibrillation, being seen by research program intern. PLAN: The patient is currently on dialysis and tolerating it well. As per research program intern, she will need daily dialysis to keep her euvolemic and hopefully clears her paroxysmal atrial fibrillation. The patient will be dialyzed tomorrow and remove fluid as tolerated. DT: 22:02:41 TT: 23:04:00 Ref: [id number] - TID: [id number] [facility]
[2025-08-21 08:11] LABS: Glucose Estimated Average 97 mg/dL (80-131); Hemoglobin A1C 5.0 % Hgb (4.8-6.0)
--- NOTE | 2025-08-21 09:02 | PD.RESPRO ---
Documentation for date of: 08/21/25 Subjective Subjective Interval history: Patient was seen and assessed at bedside. No new complaints, denies any chest pain, shortness of breath, palpitations, dizziness upon standing, lightheadedness. Blood pressure 110/56 this morning, systolics 120s to 140s. Heart rate 60 to 70s. Saturating well on room air. Potassium 4.4, magnesium 2.42. Lipids and TSH within normal limits. Of note patient tested positive for hep C antibodies. Pending echo. Continues to be in sinus rhythm on telemetry. Continue metoprolol XL 50 mg daily, recommend to uptitrate as BP tolerates. Exam Vital Signs Temp Pulse Resp BP Pulse Ox O2 Del Method 98.2 F 78 18 196/90 H 96 Room Air 08/21/25 08:51 08/21/25 08:51 08/21/25 08:51 08/21/25 08:51 08/21/25 08:51 08/21/25 08:00 Narrative Exam Physical Exam General: Awake and in no acute distress. Conversational and non-toxic appearing. Pleasant Togolese-speaking elderly lady. HEENT: Normocephalic, atraumatic, mucous membranes moist. Heart: Regular rate and rhythm, normal S1 and S2, no murmurs appreciated. Lungs: Clear to auscultation with no wheezing or crackles. Abdomen: Soft, nondistended, nontender, positive bowel sounds. No guarding or rebound tenderness. Neurologic: Alert and oriented x3, no gross neurological deficit, and patient able to move all 4 extremities. Extremities: No edema. Skin: No rash or ecchymoses. Objective Labs 08/22/25 05:15 08/21/25 05:01 Labs: Laboratory Results - last 24 hr 08/20/25 08/20/25 08/20/25 11:38 13:27 17:04 WBC RBC Hgb Hct MCV MCH MCHC RDW Std Deviation Plt Count Neut % (Auto) Lymph % (Auto) [place] % (Auto) Eos % (Auto) Baso % (Auto) Neut # (Auto) Lymph # (Auto) [place] # (Auto) Eos # (Auto) Baso # (Auto) Immature Gran # (Auto) Absolute Nucleated RBC Immature Gran % Nucleated RBC % APTT 25.9 75.3 H D Sodium 140 Potassium 4.8 Chloride 102 Carbon Dioxide 21.4 Anion Gap 17 H BUN 52 H Creatinine 9.1 H* D Estim Creat Clear Calc 5.5 L eGFR 4 L* BUN/Creatinine Ratio 6 L Glucose [address] Glu mg/dL Hemoglobin A1c Calculated Osmolality 294 Calcium 9.0 Corrected Calcium 9.0 Phosphorus 2.8 Magnesium Total Bilirubin AST ALT Alkaline Phosphatase Total Protein Albumin 4.0 Globulin Albumin/Globulin Ratio Triglycerides Cholesterol LDL Cholesterol, Calc HDL Cholesterol Cholesterol/HDL Ratio TSH Hepatitis A IgM Ab Non Reactive Hep Bs Antigen Non Reactive Hep Bs Antibody NonReact(Not Immune) L Hep B Core IgM Ab Non Reactive Hepatitis C Antibody Reactive A 08/20/25 08/21/25 08/21/25 18:49 01:36 04:35 WBC RBC Hgb Hct MCV MCH MCHC RDW Std Deviation Plt Count Neut % (Auto) Lymph % (Auto) [place] % (Auto) Eos % (Auto) Baso % (Auto) Neut # (Auto) Lymph # (Auto) [place] # (Auto) Eos # (Auto) Baso # (Auto) Immature Gran # (Auto) Absolute Nucleated RBC Immature Gran % Nucleated RBC % APTT 67.9 H 65.6 H Sodium Potassium Chloride Carbon Dioxide Anion Gap BUN Creatinine Estim Creat Clear Calc eGFR BUN/Creatinine Ratio Glucose Estimated Ave Glu mg/dL 97 Hemoglobin A1c 5.0 Calculated Osmolality Calcium Corrected Calcium Phosphorus Magnesium Total Bilirubin AST ALT Alkaline Phosphatase Total Protein Albumin Globulin Albumin/Globulin Ratio Triglycerides Cholesterol LDL Cholesterol, Calc HDL Cholesterol Cholesterol/HDL Ratio TSH Hepatitis A IgM Ab Hep Bs Antigen Hep Bs Antibody Hep B Core IgM Ab Hepatitis C Antibody 08/21/25 05:01 WBC 8.9 RBC 4.20 Hgb 14.9 Hct 43.2 MCV 103 H MCH 35.5 H MCHC 34.5 RDW Std Deviation 50.9 H Plt Count 170 Neut % (Auto) 50 Lymph % (Auto) 33 [place] % (Auto) 10 Eos % (Auto) 5 Baso % (Auto) 1 Neut # (Auto) 4.5 Lymph # (Auto) 3.0 [place] # (Auto) 0.9 H Eos # (Auto) 0.4 Baso # (Auto) 0.1 Immature Gran # (Auto) 0.07 H Absolute Nucleated RBC 0.00 Immature Gran % 1 H Nucleated RBC % 0 APTT Sodium 140 Potassium 4.4 Chloride 98 Carbon Dioxide 24.6 Anion Gap 17 H BUN 28 H Creatinine 7.1 H* D Estim Creat Clear Calc 6.9 L eGFR 6 L* BUN/Creatinine Ratio 4 L Glucose [address] Glu mg/dL Hemoglobin A1c Calculated Osmolality 283 Calcium 8.9 Corrected Calcium 8.9 Phosphorus 5.4 H Magnesium 2.2 Total Bilirubin 0.5 AST 33 ALT 23 Alkaline Phosphatase 103 D Total Protein 6.7 Albumin 4.1 Globulin 2.6 Albumin/Globulin Ratio 1.6 Triglycerides 70 Cholesterol 133 LDL Cholesterol, Calc 65 HDL Cholesterol 54 Cholesterol/HDL Ratio 2.5 L TSH 1.56 Hepatitis A IgM Ab Hep Bs Antigen Hep Bs Antibody Hep B Core IgM Ab Hepatitis C Antibody Quality Measures Quality Measures VTE prophylaxis Advance care planning discussed with:: patient Assessment & Plan Assessment Current Active Medications: Generic Name Dose Route Start Last Admin Trade Name Freq PRN Reason Stop Dose Admin Acetaminophen 650 mg 08/20/25 20:07 Acetaminophen 325 Mg Tablet PO 09/19/25 11:01 Q6H PRN Fever >100.4 AND PAIN 1-3 Hydrocodone Bitart/Acetaminophen 1 tab 08/20/25 11:02 Hydrocodone/Apap 5/325 Tablet PO 08/25/25 11:01 Q4HR PRN PAIN SCALE 4-6 (Moderate Heparin Sodium/Dextrose 25,000 unit in 250 mls @ 9.58 mls/hr 08/20/25 12:00 08/21/25 07:00 Heparin In D5w Ivpb IV 09/03/25 11:59 12 units/kg/hr .Q24H ISIDORO 9.58 mls/hr Protocol Titration 12 UNITS/KG/HR Metoprolol Succinate 50 mg 08/20/25 11:15 08/20/25 11:48 Metoprolol Succinate Xl 25 Mg Tabcr PO 09/19/25 11:14 50 mg QDAY ISIDORO Administration Nifedipine 30 mg 08/20/25 17:00 08/20/25 17:50 Nifedipine Xl 30 Mg Tabcr PO 09/19/25 16:59 30 mg QDAY [facility]ID[facility]O Administration Ondansetron HCl 4 mg 08/20/25 11:02 Ondansetron Inj 2 Mg/Ml Inj 2 Ml IVP 09/19/25 11:01 Q6H PRN NAUSEA OR VOMITING Protocol Pantoprazole Sodium 40 mg 08/20/25 11:15 08/20/25 11:48 Pantoprazole 40 Mg Tablet PO 09/19/25 11:14 40 mg QDAY ISID[facility]O Administration Plan Patient is a 70 year old female with PMH of end-stage renal disease on hemodialysis TTS followed by Dr. Finch since March 2023, essential hypertension (previously on multiple medications) was brought in for palpitations and shortness of breath. Admitted for A-fib with RVR. #New onset paroxysmal atrial fibrillation with RVR Presented with palpitations and shortness of breath, found to be in A-fib RVR on EKG. As per the patient she never had a history of A-fib. Reason for the RVR is mostly fluid overload as well as electrolyte abnormalities. No significant evidence of infection at the present point of time. Reviewed the previous EKG and previous was normal sinus rhythm. Patient did convert to normal sinus rhythm after the diltiazem x2 and metoprolol 50 x1, continues to stay normal sinus rhythm. Echocardiogram 10/2023 showed normal LV size and function with an EF of 60 to 65% with an estimated RVSP of 55 mmHg. Normal RV size and function. At least moderate pulmonary hypertension. Moderately dilated LA and severely dilated RA with mild to moderate MR as well as PI. Severe TR and IVC was dilated at that point of time. Lipid panel: Trig 70, total cholesterol 133, HDL 65, LDL 54. TSH 1.56. A1c 5.0. 08/21/2025?continues to be in sinus rhythm on telemetry. No episodes of A-fib. [id number] score is 4 Has bled score is 3. - Continue metoprolol XL 50 mg once daily , uptitrate it based on the blood pressure. -Started on home nifedipine XL 30 mg daily by primary team. - Recommend anticoagulation for the patient and can start with heparin drip for now until any further procedures are planned. Can transition to oral Eliquis 5 mg twice daily at the time of discharge or when no further procedures planned. - Keep potassium for greater than 4 and magnesium greater than 2.0 at all times. - Continue telemetry. - Echocardiogram ordered to evaluate LV function RV function as well as diastolic function and to rule out any kind of pericardial effusion. Previous echo reviewed. # History of diastolic congestive heart failure along with moderate to severe pulmonary hypertension. # Valvular heart disease with severe TR during last echocardiogram in 2022 along with mild to moderate MR as well as PI. # End-stage renal disease on hemodialysis TTSat Regarding her diastolic congestive heart failure, patient does have a history of end-stage renal disease on hemodialysis which may be major contributory factor. Patient does appear to be fluid overloaded with some electrolyte abnormalities as noted above which cause with RVR. Regarding her valvular heart disease last echo did show severe TR along with mild to moderate MR as well as PI. Patient is on dialysis and makes little urine. Follows Dr. Marquez as above. S/p inpatient dialysis 08/20, 08/21 - Recommend to continue daily dialysis for now and have euvolemic status - Further management as per nephrology. - Will await for the repeat echocardiogram as noted above to evaluate for the CHF as well as the valvular heart disease #Hypertension Presented with BP of 162/128. Previously taking 5 different blood pressure medications however has not been taking them as of late because she was told that her blood pressure is fine. ?Monitor blood pressure -Restart home BP meds if blood pressure continues to be uncontrolled depending on HR, renal function, and echo results Thank you for your consultation, please do not hesitate to reach out if you have any question or concern Patient plan of care was discussed with the attending physician, Dr. Pacheco . Deborah Red, PGY-1 Attending Provider Attestation/Addendum I have personally seen and examined the patient separately on the above date of service and discussed the plan of care with the resident. I reviewed the resident Dr. Deborah Red consultation progress note and agree with the resident findings and plan in the note above and have also edited the documentation to reflect my findings and plan. Edwin Pacheco M.D. Interventional Cardiology
[2025-08-21 10:29] LABS: Partial Thromboplastin Time 60.4 Seconds (22.0-36.0)
[2025-08-21] MEDS: ALBUMIN HUMAN-KJDA 25% IVPB 25 GM/100 ML BTL IV (10:45)
--- NOTE | 2025-08-21 11:16 | ESPR_ITS ---
<Statement entered by Grupo Hall MD - 08/21/25 11:34> I have reviewed the note and agree with the resident's assessment & plan with exceptions as below. I have personally reviewed labs, imaging, home meds/prior records, examined the patient, formulated and discussed management plan with my attending Patient was seen and evaluated bedside this morning. No acute overnight events. Patient will be transition to Eliquis 5 mg twice daily today and will continue with metoprolol succinate XL as patient's heart rate has been well-controlled and in sinus rhythm at this time. Otherwise still pending echo and possible discharge in the next 24 to 48 hours. Grupo Hall PGY2 Disclaimer: Even though this this note was dictated by speech recognition and even though it was carefully revised there may still be minor errors in finance teacher due to voice recognition software. Documentation for date of: 08/21/25 Subjective Subjective Interval history: No acute overnight events. Patient seen and examined at bedside in dialysis. Patient denies any palpitations, shortness of breath or chest pain at this time. Is in some pain due to initiation of dialysis and when seen later in a.m., patient reports cramps in the upper abdomen which usually occurs when she receives 2 rounds of dialysis consecutively but declines any pain medication. Vitals and labs reviewed. SBP 110-150. Telemetry reviewed, since yesterday patient has been in sinus rhythm heart rate 60s. Labs include BUN 28, creatinine 7.1, phosphate high 5.4. Hemodialysis today. Continue metoprolol 50 daily. Transition from heparin to Eliquis 5 mg twice daily per cardiology. Continue nifedipine XL 30 mg daily. Follow-up p.m. renal panel post dialysis. Pending echocardiogram. Exam Vital Signs Temp Pulse Resp BP Pulse Ox O2 Del Method 98.2 F 86 18 126/78 96 Room Air 08/21/25 08:51 08/21/25 11:00 08/21/25 08:51 08/21/25 11:00 08/21/25 08:51 08/21/25 08:00 Narrative Exam GENERAL: AOx3, no acute distress HEENT: mucous membranes moist, bilateral sclera anicteric CARDIOVASCULAR: regular rate and rhythm, S1/S2 present, no murmurs appreciated PULMONARY: clear to auscultation bilaterally, no rales/rhonchi/wheezes ABDOMINAL: soft, non-tender, non-distended, no rebound/guarding, bowel sounds present EXTREMITIES: no peripheral edema SKIN: warm and dry, intact, no rashes NEURO: CN II-XII grossly intact, no focal deficits, alert, following commands Objective Labs 08/22/25 05:15 08/22/25 05:15 Labs: Laboratory Results - last 24 hr 08/20/25 08/20/25 08/20/25 11:38 13:27 17:04 WBC RBC Hgb Hct MCV MCH MCHC RDW Std Deviation Plt Count Neut % (Auto) Lymph % (Auto) [place] % (Auto) Eos % (Auto) Baso % (Auto) Neut # (Auto) Lymph # (Auto) [place] # (Auto) Eos # (Auto) Baso # (Auto) Immature Gran # (Auto) Absolute Nucleated RBC Immature Gran % Nucleated RBC % APTT 25.9 75.3 H D Sodium 140 Potassium 4.8 Chloride 102 Carbon Dioxide 21.4 Anion Gap 17 H BUN 52 H Creatinine 9.1 H* D Estim Creat Clear Calc 5.5 L eGFR 4 L* BUN/Creatinine Ratio 6 L Glucose [address] Glu mg/dL Hemoglobin A1c Calculated Osmolality 294 Calcium 9.0 Corrected Calcium 9.0 Phosphorus 2.8 Magnesium Total Bilirubin AST ALT Alkaline Phosphatase Total Protein Albumin 4.0 Globulin Albumin/Globulin Ratio Triglycerides Cholesterol LDL Cholesterol, Calc HDL Cholesterol Cholesterol/HDL Ratio TSH Hepatitis A IgM Ab Non Reactive Hep Bs Antigen Non Reactive Hep Bs Antibody NonReact(Not Immune) L Hep B Core IgM Ab Non Reactive Hepatitis C Antibody Reactive A 08/20/25 08/21/25 08/21/25 18:49 01:36 04:35 WBC RBC Hgb Hct MCV MCH MCHC RDW Std Deviation Plt Count Neut % (Auto) Lymph % (Auto) [place] % (Auto) Eos % (Auto) Baso % (Auto) Neut # (Auto) Lymph # (Auto) [place] # (Auto) Eos # (Auto) Baso # (Auto) Immature Gran # (Auto) Absolute Nucleated RBC Immature Gran % Nucleated RBC % APTT 67.9 H 65.6 H Sodium Potassium Chloride Carbon Dioxide Anion Gap BUN Creatinine Estim Creat Clear Calc eGFR BUN/Creatinine Ratio Glucose Estimated Ave Glu mg/dL 97 Hemoglobin A1c 5.0 Calculated Osmolality Calcium Corrected Calcium Phosphorus Magnesium Total Bilirubin AST ALT Alkaline Phosphatase Total Protein Albumin Globulin Albumin/Globulin Ratio Triglycerides Cholesterol LDL Cholesterol, Calc HDL Cholesterol Cholesterol/HDL Ratio TSH Hepatitis A IgM Ab Hep Bs Antigen Hep Bs Antibody Hep B Core IgM Ab Hepatitis C Antibody 08/21/25 08/21/25 05:01 09:30 WBC 8.9 RBC 4.20 Hgb 14.9 Hct 43.2 MCV 103 H MCH 35.5 H MCHC 34.5 RDW Std Deviation 50.9 H Plt Count 170 Neut % (Auto) 50 Lymph % (Auto) 33 [place] % (Auto) 10 Eos % (Auto) 5 Baso % (Auto) 1 Neut # (Auto) 4.5 Lymph # (Auto) 3.0 [place] # (Auto) 0.9 H Eos # (Auto) 0.4 Baso # (Auto) 0.1 Immature Gran # (Auto) 0.07 H Absolute Nucleated RBC 0.00 Immature Gran % 1 H Nucleated RBC % 0 APTT 60.4 H Sodium 140 Potassium 4.4 Chloride 98 Carbon Dioxide 24.6 Anion Gap 17 H BUN 28 H Creatinine 7.1 H* D Estim Creat Clear Calc 6.9 L eGFR 6 L* BUN/Creatinine Ratio 4 L Glucose [address] Glu mg/dL Hemoglobin A1c Calculated Osmolality 283 Calcium 8.9 Corrected Calcium 8.9 Phosphorus 5.4 H Magnesium 2.2 Total Bilirubin 0.5 AST 33 ALT 23 Alkaline Phosphatase 103 D Total Protein 6.7 Albumin 4.1 Globulin 2.6 Albumin/Globulin Ratio 1.6 Triglycerides 70 Cholesterol 133 LDL Cholesterol, Calc 65 HDL Cholesterol 54 Cholesterol/HDL Ratio 2.5 L TSH 1.56 Hepatitis A IgM Ab Hep Bs Antigen Hep Bs Antibody Hep B Core IgM Ab Hepatitis C Antibody Quality Measures Quality Measures VTE prophylaxis Advance care planning discussed with:: patient Assessment & Plan Assessment Current Active Medications: Generic Name Dose Route Start Last Admin Trade Name Freq PRN Reason Stop Dose Admin Acetaminophen 650 mg 08/20/25 20:07 Acetaminophen 325 Mg Tablet PO 09/19/25 11:01 Q6H PRN Fever >100.4 AND PAIN 1-3 Hydrocodone Bitart/Acetaminophen 1 tab 08/20/25 11:02 Hydrocodone/Apap 5/325 Tablet PO 08/25/25 11:01 Q4HR PRN PAIN SCALE 4-6 (Moderate Apixaban 5 mg 08/21/25 11:00 Apixaban 2.5 Mg Tablet PO 09/20/25 10:59 BID ISIDORO Albumin Human 25 gm in 100 mls @ 100 mls/min 08/21/25 10:45 Albuminex 25% Ivpb IV 09/20/25 10:44 PRN PRN DIALYSIS Metoprolol Succinate 50 mg 08/20/25 11:15 08/20/25 11:48 Metoprolol Succinate Xl 25 Mg Tabcr PO 09/19/25 11:14 50 mg QDAY ISIDORO Administration Nifedipine 30 mg 08/20/25 17:00 08/20/25 17:50 Nifedipine Xl 30 Mg Tabcr PO 09/19/25 16:59 30 mg QDAY ISIDORO Administration Ondansetron HCl 4 mg 08/20/25 11:02 Ondansetron Inj 2 Mg/Ml Inj 2 Ml IVP 09/19/25 11:01 Q6H PRN NAUSEA OR VOMITING Protocol Pantoprazole Sodium 40 mg 08/20/25 11:15 08/20/25 11:48 Pantoprazole 40 Mg Tablet PO 09/19/25 11:14 40 mg QDAY ISIDORO Administration Plan Bonita Adame 70F pmhx significant for ESRD on HD TTS, HTN, and HLD presented to [facility] ED on 08/10 sent from HD center for increased HR, admitted for A-fib with RVR with no prior hx of afib. #New onset atrial fibrillation with RVR No hx of afib, denied ever having palpitations. Presented with HR in the 150s and EKG showed A-fib RVR with a heart rate of 144. On admission, trops neg, BNP 744. Likely 2/2 electrolye abnormalities prior to HD. s/p diltiazem 10 mg IV x 2 with minimal improvement in ED. [id number] score of 3 points indicating 4.6% risk of stroke Has-bled score of 2 points indicating moderate risk of bleeding. s/p heparin drip (08/20-08/21) Plan: - Continue metoprolol succinate XL 50 mg daily - Transitioned from heparin drip to Eliquis 5 mg BID per cardiology - F/u echo - Keep K>4 and Mg>2 at all times - Cardiology consulted, recs appreciated #ESRD on HD (TTS) Recieves through LUE AVF. Had HD scheduled for day of admission, but did not receive. Admission Cr 9.1 with BUN 52 HD: 08/20, 08/21 Plan: - Nephrology consulted, recs appreciated: HD today - Avoid nephrotoxic meds and renally dose #Essential hypertension #HLD Does not take any HTN meds at home. On admission BP 162/128. Trig 70, cholesterol 133, LDL 65, HDL 54. Plan: - Nifedipine XL 30 mg QD - CTM vitals Hospital management: Lines: PIV Diet: Cardiac Bowel: not indicated GI prophylaxis: PO pantoprazole 40 mg DVT prophylaxis: Eliquis 5 mg BID Disposition: tele, pending echo CODE STATUS: FULL CODE Plan of care discussed with attending Dr. Millan, and PGY-2 Dr. Odonnell. Bethany Red DO PGY-1 Internal Medicine Attending Provider Attestation/Addendum I have discussed and was present for the essential components of the history, physical examination, diagnosis, and treatment plan with the resident. I agree with the patient's care as documented by the resident and amended herein by me. Cristobal Millan DO. Although this document has been carefully reviewed, there may still be some phonetic and other typographical errors. These errors are purely grammatical due to imperfections in the software program and should not be construed in any way to compromise the substance of the patient's medical care during this visit.
[2025-08-21] MEDS: NIFEdipine XL 30 MG TABCR PO (12:05)
[2025-08-21] MEDS: METOPROLOL SUCCINATE XL 25 MG TABCR 50 MG PO (12:06)
[2025-08-21] MEDS: APIXABAN 2.5 MG TABLET 5 MG PO ×2 (12:08→20:37)
[2025-08-21] MEDS: PANTOPRAZOLE 40 MG TABLET PO (12:08)
[2025-08-21] MEDS: ACETAMINOPHEN 325 MG TABLET 650 MG PO ×2 (14:57→20:50)
--- NOTE | 2025-08-21 15:02 | PC.SS ---
Addendum entered by Keiry Galarza 08/21/25 15:09: rounding note: echo pending. Original Note: Patient is alert/oriented. Patient was able to verify her demographics. Patient [place] speaking only. Manager Statistics present. Patient admitted for new onset a-fib. Patient state she resides with her and daughter. She is independent with ADL's. Patient uses a walker and wheelchair at home. Patient verbalized she will neee a new walker w/seat. Patient is on dialysis with Dr. Marquez every //Sat @ 4a.m. Patient's family transports. PCP: Dr. Wilson @ [facility]. [facility] Patient discharge plan is to return home. alt medical decision maker: Daughter, Nancy Adame,
--- NOTE | 2025-08-21 20:03 | PC.NURSE ---
DR. MUNGUIA MADE AWARE OF PT HAVING BLE CRAMPS SINCE HD. STATES HE WILL REVIEW CHART TO PLACE ORDERS
[2025-08-21] MEDS: ONDANSETRON INJ 2 MG/ML INJ 2 ML 4 MG IVP (20:44)
[2025-08-22] VITALS (24 sets, daily range): BP systolic 99–143; BP diastolic 57–80; PULSE 61–83; RESP 16–18; TEMP 36.1–36.9; O2SAT 93–99; BMI 33.6
[2025-08-22] MEDS: MELATONIN 3 MG TABLET PO (00:13)
[2025-08-22 05:46] LABS: Basophils # (Auto) 0.0 Thou/mm3 (0.0-0.2); Basophils % (Auto) 1 % (0-2.5); Eosinophils # (Auto) 0.3 Thou/mm3 (0.0-0.5); Eosinophils % (Auto) 4 % (0-10); Hematocrit 43.0 % (36.0-46.0); Hemoglobin 14.8 g/dL (12.0-16.0); Immature Granulocytes Auto 0.05 Thou/mm3 (0.00-0.00); Lymphocytes # (Auto) 2.5 Thou/mm3 (1.0-4.8); Lymphocytes % (Auto) 30 % (10-50); Mean Corpuscular HGB Conc 34.4 g/dl (31.0-37.0); Mean Corpuscular Hemoglobin 35.3 pg (25.0-35.0); Mean Corpuscular Volume 103 fL (80-100); Monocytes # (Auto) 1.2 Thou/mm3 (0.0-0.8); Monocytes % (Auto) 15 % (0-12); Neutrophils # (Auto) 4.2 Thou/mm3 (1.8-7.7); Neutrophils % (Auto) 50 % (37-80); Nucleated Red Blood Cell # 0.00 Thou/mm3 (0.00-0.00); Nucleated Red Blood Cell % 0 /100 WBC (0); Platelet Count 166 Thou/mm3 (140-440); RDW Standard Deviation 49.9 fL (36.4-46.3); Red Blood Count 4.19 Miln/mm3 (4.00-5.20); White Blood Count 8.4 Thou/mm3 (3.6-11.0)
[2025-08-22 06:01] LABS: INR 1.1 (0.9-1.3); Partial Thromboplastin Time 29.7 Seconds (22.0-36.0); Prothrombin Time 11.3 Seconds (9.0-12.2)
[2025-08-22 06:32] LABS: Alanine Aminotransferase 24 U/L (10-49); Albumin, Serum 4.8 gm/dL (3.4-4.8); Albumin/Globulin Ratio 1.9 (1.2-2.2); Alkaline Phosphatase 104 U/L (46-116); Anion Gap 18 (7-16); Aspartate Amino Transferase 31 U/L (0-34); BUN/Creatinine Ratio 6 Ratio (12-20); Bilirubin,Total 0.5 mg/dL (0.3-1.2); Blood Urea Nitrogen 36 mg/dL (9-23); Calcium 9.4 mg/dL (8.3-10.6); Calcium (Corrected) 9.4 mg/dL (8.5-10.1); Carbon Dioxide 27.0 mMol/L (20.0-31.0); Chloride 92 mMol/L (98-107); Creatinine (Component) 6.1 mg/dL (0.6-1.3); Estimated Creatinine Clearance 8.0 mL/min (>60); Globulin 2.5 gm/dL (2.3-3.5); Glucose 94 mg/dL (74-106); Magnesium 2.4 mg/dL (1.6-2.6); Osmolality,Calculated 282 (275-295); Phosphorous 5.0 mg/dL (2.4-5.1); Potassium 3.8 mMol/L (3.4-5.1); Sodium 137 mMol/L (136-145); Total Protein 7.3 gm/dL (5.7-8.2); eGFR 7 See Note
[2025-08-22] MEDS: ACETAMINOPHEN 325 MG TABLET 650 MG PO (08:06)
[2025-08-22] MEDS: PANTOPRAZOLE 40 MG TABLET PO (08:06)
--- NOTE | 2025-08-22 08:52 | ESPR_ITS ---
Documentation for date of: 08/22/25 Subjective Subjective Interval history: Patient seen and assessed at bedside. Did have some mild dizziness upon standing to use the restroom last night however denies any chest pain, shortness of breath, palpitations. Blood pressure 99/57 this morning, systolics 1 15-1 20s overnight. Recommend to hold the nifedipine today. Continue metoprolol XL 50 mg daily. Potassium 3.8, creatinine 6.1. Hemoglobin stable at 14.8. Sinus rhythm on telemetry. Exam Vital Signs Temp Pulse Resp BP Pulse Ox O2 Del Method 96.9 F 77 16 134/78 H 99 Room Air 08/22/25 08:00 08/22/25 08:00 08/22/25 08:00 08/22/25 08:00 08/22/25 08:00 08/22/25 08:00 Narrative Exam Physical Exam General: Awake and in no acute distress. Conversational and non-toxic appearing. Pleasant [place]-speaking elderly lady. HEENT: Normocephalic, atraumatic, mucous membranes moist. Heart: Regular rate and rhythm, normal S1 and S2, no murmurs appreciated. Lungs: Clear to auscultation with no wheezing or crackles. Abdomen: Soft, nondistended, nontender, positive bowel sounds. No guarding or rebound tenderness. Neurologic: Alert and oriented x3, no gross neurological deficit, and patient able to move all 4 extremities. Extremities: No edema. Skin: No rash or ecchymoses. Objective Labs 08/22/25 05:15 08/22/25 05:15 Labs: Laboratory Results - last 24 hr 08/21/25 08/22/25 09:30 05:15 WBC 8.4 RBC 4.19 Hgb 14.8 Hct 43.0 MCV 103 H MCH 35.3 H MCHC 34.4 RDW Std Deviation 49.9 H Plt Count 166 Neut % (Auto) 50 Lymph % (Auto) 30 [place] % (Auto) 15 H Eos % (Auto) 4 Baso % (Auto) 1 Neut # (Auto) 4.2 Lymph # (Auto) 2.5 [place] # (Auto) 1.2 H Eos # (Auto) 0.3 Baso # (Auto) 0.0 Immature Gran # (Auto) 0.05 H Absolute Nucleated RBC 0.00 Immature Gran % 1 H Nucleated RBC % 0 PT 11.3 INR 1.1 APTT 60.4 H 29.7 D Sodium 137 Potassium 3.8 D Chloride 92 L Carbon Dioxide 27.0 Anion Gap 18 H BUN 36 H Creatinine 6.1 H* D Estim Creat Clear Calc 8.0 L eGFR 7 L* BUN/Creatinine Ratio 6 L Glucose 94 Calculated Osmolality 282 Calcium 9.4 Corrected Calcium 9.4 Phosphorus 5.0 Magnesium 2.4 Total Bilirubin 0.5 AST 31 ALT 24 Alkaline Phosphatase 104 Total Protein 7.3 Albumin 4.8 D Globulin 2.5 Albumin/Globulin Ratio 1.9 Quality Measures Quality Measures VTE prophylaxis Advance care planning discussed with:: patient Assessment & Plan Assessment Current Active Medications: Generic Name Dose Route Start Last Admin Trade Name Freq PRN Reason Stop Dose Admin Acetaminophen 650 mg 08/20/25 20:07 08/22/25 08:06 Acetaminophen 325 Mg Tablet PO 09/19/25 11:01 650 mg Q6H PRN Administration Fever >100.4 AND PAIN 1-3 Hydrocodone Bitart/Acetaminophen 1 tab 08/20/25 11:02 Hydrocodone/Apap 5/325 Tablet PO 08/25/25 11:01 Q4HR PRN PAIN SCALE 4-6 (Moderate Apixaban 5 mg 08/21/25 11:00 08/21/25 20:37 Apixaban 2.5 Mg Tablet PO 09/20/25 10:59 5 mg BID ISIDORO Administration Albumin Human 25 gm in 100 mls @ 100 mls/min 08/21/25 10:45 08/21/25 10:45 Albuminex 25% Ivpb IV 09/20/25 10:44 100 mls/min PRN PRN Administration DIALYSIS Metoprolol Succinate 50 mg 08/20/25 11:15 08/21/25 12:06 Metoprolol Succinate Xl 25 Mg Tabcr PO 09/19/25 11:14 50 mg QDAY ISIDORO Administration Nifedipine 30 mg 08/20/25 17:00 08/21/25 12:05 Nifedipine Xl 30 Mg Tabcr PO 09/19/25 16:59 30 mg QDAY ISIDORO Administration Ondansetron HCl 4 mg 08/20/25 11:02 08/21/25 20:44 Ondansetron Inj 2 Mg/Ml Inj 2 Ml IVP 09/19/25 11:01 4 mg Q6H PRN Administration NAUSEA OR VOMITING Protocol Pantoprazole Sodium 40 mg 08/20/25 11:15 08/22/25 08:06 Pantoprazole 40 Mg Tablet PO 09/19/25 11:14 40 mg QDAY ISIDORO Administration Plan Patient is a 70 year old female with PMH of end-stage renal disease on hemodialysis TTS followed by Dr. Finch since March 2023, essential hypertension (previously on multiple medications) was brought in for palpitations and shortness of breath. Admitted for A-fib with RVR. #New onset paroxysmal atrial fibrillation with RVR Presented with palpitations and shortness of breath, found to be in A-fib RVR on EKG. As per the patient she never had a history of A-fib. Reason for the RVR is mostly fluid overload as well as electrolyte abnormalities. No significant evidence of infection at the present point of time. Reviewed the previous EKG and previous was normal sinus rhythm. Patient did convert to normal sinus rhythm after the diltiazem x2 and metoprolol 50 x1, continues to stay normal sinus rhythm. Echocardiogram 10/2023 showed normal LV size and function with an EF of 60 to 65% with an estimated RVSP of 55 mmHg. Normal RV size and function. At least moderate pulmonary hypertension. Moderately dilated LA and severely dilated RA with mild to moderate MR as well as PI. Severe TR and IVC was dilated at that point of time. Lipid panel: Trig 70, total cholesterol 133, HDL 65, LDL 54. TSH 1.56. A1c 5.0. Echo 08/20/2025 showed normal left ventricular size and function. Grade I diastolic dysfunction. Estimated EF 60-65%. Normal Right ventricular size and function. RVSP 34 mmHg with RAP 10. Mild pulmonary HTN. Moderately dilated LA and mild dilated RA Mild MR,TR,PI. No pericardial effusion. Compared to prior study of 08/08/23 Patient continues to be in sinus rhythm on telemetry. No episodes of A-fib. [id number] score is 4 Has bled score is 3. - Continue metoprolol XL 50 mg once daily , uptitrate it based on the blood pressure. - Eliquis 5 mg twice daily. - Keep potassium for greater than 4 and magnesium greater than 2.0 at all times. - Continue telemetry. - Echocardiogram ordered to evaluate LV function RV function as well as diastolic function and to rule out any kind of pericardial effusion. Previous echo reviewed. # HFpEF (EF 60 to 65%) # History of diastolic congestive heart failure along with severe pulmonary hypertension. # Valvular heart disease with severe TR during last echocardiogram in 2022 along with mild to moderate MR as well as PI. # End-stage renal disease on hemodialysis TTSat Regarding her diastolic congestive heart failure, patient does have a history of end-stage renal disease on hemodialysis which may be major contributory factor. Patient does appear to be fluid overloaded with some electrolyte abnormalities as noted above which cause with RVR. Regarding her valvular heart disease last echo did show severe TR along with mild to moderate MR as well as PI. Patient is on dialysis and makes little urine. Follows Dr. Marquez as above. Echocardiogram 10/2023 showed normal LV size and function with an EF of 60 to 65% with an estimated RVSP of 55 mmHg. Normal RV size and function. At least moderate pulmonary hypertension. Moderately dilated LA and severely dilated RA with mild to moderate MR as well as PI. Severe TR and IVC was dilated at that point of time. Echo 08/20/2025 showed normal left ventricular size and function. Grade I diastolic dysfunction. Estimated EF 60-65%. Normal Right ventricular size and function. RVSP 34 mmHg with RAP 10. Mild pulmonary HTN. Moderately dilated LA and mild dilated RA Mild MR,TR,PI. No pericardial effusion. Compared to prior study of 08/08/23 S/p inpatient dialysis 08/20, 08/21 - Recommend to continue daily dialysis for now and have euvolemic status - Further management as per nephrology. - Improved valvular function on repeat echo in 08/20/2025 compared to previous study in 08/08/2023. No need for valvular placement or intervention at this time. - Metoprolol XL 50 mg daily as part of GDMT. Patient would also benefit from starting on losartan given her end-stage renal disease. #Hypertension Presented with BP of 162/128. Previously taking 5 different blood pressure medications however has not been taking them as of late because she was told that her blood pressure is fine. - Hold nifedipine XL 30 mg today given low blood pressure. ?Monitor blood pressure Thank you for your consultation, please do not hesitate to reach out if you have any question or concern Patient plan of care was discussed with the attending physician, Dr. Pacheco . Deborah Red, PGY-1 Attending Provider Attestation/Addendum I have personally seen and examined the patient separately on the above date of service and discussed the plan of care with the resident. I reviewed the resident Dr. Deborah Red consultation progress note and agree with the resident findings and plan in the note above and have also edited the documentation to reflect my findings and plan. Edwin Pacheco M.D. Interventional Cardiology
--- NOTE | 2025-08-22 10:20 | ESDS_ITS ---
Planned Discharge Date 08/22/25 DS: Providers Provider Date of admission: 08/20/25 11:02 Primary care physician: Luis Adrian Admitting Provider: Bradley Cook MD Attending Provider on Admission: Ilia Millan DO Consults: 08/20/25 11:05 Consult to Nephrology Routine Comment: Consulting Provider: Nelli Marquez 08/20/25 11:08 Consult to Cardiology Routine Comment: Consulting Provider: Edwin Pacheco Attending Provider on DC: Ilia Millan DO Discharging Provider: Ilia Millan DO DS: Diagnosis Problem List Completed Was Problem List Reviewed/Reconciled?: Yes Hospital Course Hospital Course Hospital course: 70-year-old female with past medical history ESRD, hypertension, and hyperlipidemia was admitted to the hospital on 08/20/2025 for A-fib with RVR. Initially came in tachycardic and hypertensive. Initial chest x-ray showed suspicion for early heart failure and initial EKG showed A-fib with RVR and a rate of 144. Initial labs were fairly unremarkable other than CMP showing elevated creatinine and elevated BNP. Patient 2 doses of the diazepam and heart rate was still in the 110s therefore was started on metoprolol succinate 50 mg daily with help patient's heart rate to be in the 60s and it remained sinus rhythm in the 60s throughout the hospital stay. She was started on heparin drip and was transitioned to Eliquis after no significant drop in hemoglobin nor any signs of bleeding. Patient's hospital course was fairly unremarkable and echo showed EF of 60 to 65%. At this time patient is stable enough to be discharged home. Discharge plan: Follow-up primary care physician within 2 to 3 days upon discharge Please follow-up with your route delivery manager within 7 days upon discharge Please follow-up with traffic control signaler within 7 days upon discharge You have been started on Eliquis 5 mg twice daily for anticoagulation You have been started metoprolol succinate 50 milligrams daily We have held your clonidine, hydralazine, and losartan OT follow-up with cardiology or PCP We have stopped your metoprolol to tartrate 100 mg twice daily and your metoprolol titrate 25 mg twice daily. Continue taking all other home medications as prescribed. Come back to the ED if symptoms persist or worsen Problem list: #New onset atrial fibrillation with RVR #ESRD on HD (TTS) #Essential hypertension #HLD Case disclosed with Attending Dr. Yana Hall PGY2 Disclaimer: Even though this this note was dictated by speech recognition and even though it was carefully revised there may still be minor errors in t ranscription due to voice recognition software. Status at Discharge Overall status at discharge: patient is progressing back to baseline Time Spent with Patient Time attestation: Total time spent providing and/or coordinating discharge services:>30 min Time spent: Greater than 30 minutes Exam Vital Signs Temp Pulse Resp BP Pulse Ox O2 Del Method 98.4 F 70 16 121/68 99 Room Air 08/22/25 09:42 08/22/25 10:15 08/22/25 09:42 08/22/25 10:15 08/22/25 09:42 08/22/25 08:00 Narrative Exam General: A/O x3, no acute distress Eyes: PERRL, EOMI. Anicteric, vision grossly intact. Ears: No ear pain, no ear discharge, Hearing grossly intact. Nose: No nasal discharge. Mouth/Throat: Moist mucous membranes, no redness, no lesions. Neck: Neck supple, non-tender, no cervical lymphadenopathy. Lungs: Clear NINO to auscultation and percussion, No accessory muscle use. Cardio: Normal S1/S2, regular rhythm, no murmurs, no JVD or carotid bruits. Abdomen: Soft, non-tender, no palpable masses, peristalsis present, no guarding or rebound. Extremities: Symmetrical, no significant deformities, no peripheral edema , non-tender, peripheral pulses presents. Skin: No rashes, no lesions, warm to touch. L arm fistula Neuro: No focal neurological deficits. motor and sensory intact Psych: Cooperative, appropriate mood and effect. Discharge Plan Plan Patient Disposition: HOME (Self Care) Care Plan Goals: Follow-up primary care physician within 2 to 3 days upon discharge Please follow-up with your route delivery manager within 7 days upon discharge Please follow-up with traffic control signaler within 7 days upon discharge You have been started on Eliquis 5 mg twice daily for anticoagulation You have been started metoprolol succinate 50 milligrams daily We have held your clonidine, hydralazine, and losartan OT follow-up with cardiol ogy or PCP We have stopped your metoprolol to tartrate 100 mg twice daily and your metoprolol titrate 25 mg twice daily. Continue taking all other home medications as prescribed. Come back to the ED if symptoms persist or worsen Prescriptions/Referrals Prescriptions/Med Rec: New Eliquis 5 mg tablet 5 mg PO BID Qty: 60 0RF metoprolol succinate 50 mg tablet extended release 24 hr 50 mg PO QDAY Qty: 30 0RF nifedipine 30 mg tablet extended release 30 mg PO QDAY Qty: 30 0RF Held hydralazine 25 mg Tablet 50 mg PO TID Hold Instructions: Resume on 08/29/25. until you follow up with cardiology or pcp losartan 100 mg Tablet 100 mg PO QDAY Hold Instructions: Resume on 08/29/25. until you follow up with cardiology or pcp clonidine HCl 0.3 mg tablet 0.3 mg PO TID Qty: 90 3RF Hold Instructions: Resume on 08/29/25. until you follow up with cardiology or pcp Discontinued metoprolol tartrate 100 mg tablet 100 mg PO BID nifedipine 30 mg tablet extended release 30 mg PO QDAY nifedipine [Procardia XL] 30 MG/BOTTLE tablet extended release 24 hr 30 mg PO BID Qty: 0 metoprolol tartrate 25 mg Tablet 10 mg PO BID Referrals: Edwin Pacheco MD [Physician, Cardiology] Luis Wilson [Primary Care Provider] Patient/Caregiver Discharge Instructions Other Discharge Activity Instructions:: Follow-up primary care physician within 2 to 3 days upon discharge Please follow-up with your route delivery manager within 7 days upon discharge Please follow-up with traffic control signaler within 7 days upon discharge You have been started on Eliquis 5 mg twice daily for anticoagulation You have been started metoprolol succinate 50 milligrams daily We have held your clonidine, hydralazine, and losartan OT follow-up with cardiology or PCP We have stopped your metoprolol to tartrate 100 mg twice daily and your metoprolol titrate 25 mg twice daily. Continue taking all other home medications as prescribed. Come back to the ED if symptoms persist or worsen Education Materials: [employer] Print Language: Romanian Stand Alone Forms: [facility] Award Info., Patient Portal Info Letter, Work/Release Restrictions Discharge Order Discharge Orders: Discharge (Routine); Ordered 08/22/25 Ordered By: Grupo Hall Quality Discharge Quality Measures VTE prophylaxis MD Attestestation MD Attestation I have discussed and was present for the essential components of the discharge history, physical examination, diagnosis, and discharge treatment plan with the resident. I agree with the patient's discharge care as documented by the resident and amended herein by me. Cristobal Millan DO. The patient understood all discharge instructions, all questions were answered satisfactorily. The patient was instructed to return to the Emergency Department is symptoms worsened or persisted. Patient was stable, afebrile, tolerating p.o. intake at time of discharge home. Please see med rec above for additional medications added to include Eliquis, metoprolol succinate and nifedipine. All questions were answered satisfactorily, patient cleared for discharge home. Although this document has been carefully reviewed, there may still be some phonetic and other typographical errors. These errors are purely grammatical due to imperfections in the software program and should not be construed in any way to compromise the substance of the patient's medical care during this visit. Time Spent on discharge: 35 min
[2025-08-22] MEDS: METOPROLOL SUCCINATE XL 25 MG TABCR 50 MG PO (14:01)
[2025-08-22] MEDS: NIFEdipine XL 30 MG TABCR PO (14:02)
[2025-08-22] MEDS: APIXABAN 2.5 MG TABLET 5 MG PO (14:03)
== END 2025-08-22 16:30 | disposition home or self-care (01) ==
LOC: SERX 06:32 → SERHOLD 12:12 → S2NX 14:28 → SERHOLD 08-22 06:28 → S2NX 08-22 06:29
PROVIDERS: Emergency Medicine; Internal Medicine Nephrology; Student in an Organized Health Care Education/Training Program; Admitting Provider Student in an Organized Health Care Education/Training Program; Emergency Provider Emergency Medicine; PCP Physician Assistant; Visit Provider Student in an Organized Health Care Education/Training Program
DX: I48.0 Paroxysmal atrial fibrillation (principal); N18.6 End stage renal disease; I13.2 Hypertensive heart and chronic kidney disease with heart failure and with stage 5 chronic kidney disease, or end stage renal disease; I50.32 Chronic diastolic (congestive) heart failure; Z99.2 Dependence on renal dialysis; E78.5 Hyperlipidemia, unspecified; I27.20 Pulmonary hypertension, unspecified; I07.1 Rheumatic tricuspid insufficiency
CPT/HCPCS: 36415; 71045; 80053; 80061; 80069; 80074; 80307; 81001; 83036; 83615; 83735; 83880; 84100; 84443; 84484; 85025; 85610; 85730; 86706; 87081; 90935; 93005; 93306; 96365; 96366; 96375; 99284; G0378; J1644; J2405; J3490; P9047; A9270; G0257; P0947